=== PATIENT | female | born 1935 | race Caucasian/White ===

== ENCOUNTER 2017-10-27 07:37 | Inpatient (IN) | payer MEDICARE, OTHER ==
[~2017-10-27] VITALS: Ht 165.1 cm; Wt 74.8 kg
[2017-10-27] VITALS (7 sets, daily range): BP systolic 134–159; BP diastolic 60–70; PULSE 92–100; RESP 20–32; TEMP 99.2; Ht 165.1 cm; Wt 74.8 kg
[2017-10-27] MEDS ORDERED: IPRATROPIUM (NEB) 0.5 MG/2.5 ML AMP INH STA (08:00)
[2017-10-27] MEDS ORDERED: ALBUTEROL 0.5% (NEB) 2.5 MG/0.5 ML AMP INH STA (08:00)
[2017-10-27] MEDS ORDERED: METHYLPREDNISOLONE 125 MG INJ IV STA (08:00)
[2017-10-27] MEDS ORDERED: SOD CHLORIDE 0.9% 500 ML IV ONE (08:00)
--- NOTE | 2017-10-27 08:00 | ERD ---
ER Documentation Chief Complaint Chief Complaint AMS HPI This is an 82-year-old female with a past medical history of hypertension, hyperlipidemia, congestive heart failure, chronic kidney disease, COPD, GERD, anemia of chronic disease, Parkinson's disease, multiple sclerosis, schizophrenia, anxiety who is found to be more altered than usual this morning during morning evaluation. It is unclear exactly when her altered state started. She was evaluated this morning approximately 30 minutes prior to arrival. The patient is typically alert and oriented 1. However, this morning , she seemed more lethargic than usual. She apparently is on oxygen at baseline , but she seemed to be having increased work of breathing, so she was placed on a nonrebreather by the EMS crew. The patient does appropriately withdraw to pain, and she moves all extremities spontaneously. The patient apparently had a chest x-ray performed yesterday that revealed chronic interstitial lung changes without obvious pneumonia. There did not appear to be any acute cardiopulmonary process per the radiology report, read at 10:23 PM last night. The patient is nonverbal and unable to provide any history. History was obtained by review of the medical record from the nursing facility as well as from the EMS service. ROS Limited secondary to altered mentation Medications Home Meds Reported Medications Ascorbic Acid (Vitamin C) 500 Mg Tab, 500 MG PO BID, TAB 10/27/17 Tramadol Hcl* (Ultram*) 50 Mg Tablet, 50 MG PO Q8 Y for PAIN, TAB 10/27/17 Acetaminophen* (Acetaminophen*) 500 MG Extra Strength Tablet, 500 MG PO Q4H Y for PAIN AND OR ELEVATED TEMP, TAB 10/27/17 Pramipexole* (Pramipexole*) 0.25 Mg Tablet, 0.25 MG PO TID, TAB 10/27/17 Pimavanserin Tartrate (Nuplazid) 17 Mg Tablet, 17 MG PO DAILY, TAB 10/27/17 Potassium Chloride* (Potassium Chloride*) 20 Meq Tablet.er, 10 MEQ PO DAILY, TAB.SA 10/27/17 Omeprazole* (Omeprazole*) 20 Mg Capsule.dr, 20 MG PO DAILY, #30 CAP 10/27/17 Ibuprofen* (Advil*) 200 Mg Capsule, 200 MG PO BID Y for PAIN, CAP 10/27/17 Mirtazapine* (Mirtazapine*) 7.5 Mg Tablet, 7.5 MG PO HS, TAB 10/27/17 Magnesium Hydroxide* (Milk Of Magnesia*) 400 Mg/5 Ml Oral.susp, 30 ML PO DAILY Y for CONSTIPATION, ML 10/27/17 Metoprolol Succinate* (Toprol XL*) 25 Mg Tab.sr.24h, 25 MG PO DAILY, #30 TAB HOLD BELOW 110 OR HR BELOW 60 10/27/17 Mesalamine (Mesalamine) 800 Mg Tablet.dr, 800 MG PO BID 10/27/17 Melatonin (Melatonin) 3 Mg Tablet.sa, 3 MG PO HS, TAB.SA 10/27/17 Losartan Potassium* (Losartan Potassium*) 25 Mg Tablet, 25 MG PO DAILY, TAB 10/27/17 Levothyroxine Sodium* (Levothyroxine Sodium*) 88 Mcg Tablet, 88 MCG PO BEFORE BREAKFAST, #30 TAB 10/27/17 Furosemide* (Furosemide*) 20 Mg Tablet, 20 MG PO DAILY, #60 TAB 10/27/17 Clonazepam* (Klonopin*) 0.5 Mg Tab, 0.25 MG PO BID, TAB 10/27/17 Isosorbide Mononitrate* (Isosorbide Mononitrate*) 60 Mg Tab.er.24h, 60 MG PO DAILY, TAB 10/27/17 Mineral Oil* (Fleet* Mineral Oil Enema) 133 Ml Oil, 133 ML ND DAILY Y for CONSTIPATION, ENEMA 10/27/17 Ferrous Sulfate* (Ferrous Sulfate*) 325 Mg Tabec, 325 MG PO BID, TAB 10/27/17 Bisacodyl* (Dulcolax*) 5 Mg Tablet.dr, 10 MG PO DAILY Y for CONSTIPATION, TAB 10/27/17 Cranberry Extract (Cranberry) 425 Mg Capsule, 425 MG PO DAILY, CAP 10/27/17 Docusate Sodium* (Colace*) 100 Mg Capsule, 200 MG PO QHS, #30 CAP 10/27/17 Cholecalciferol* (Vitamin D3*) 1,000 Unit Tablet, 1000 UNIT PO DAILY, TAB 10/27/17 [Carbidopa-Levodopa] 25-250 TAB No Conflict Check, 25-250 MG PO TID for 31 Days 10/27/17 Ipratropium-Albuterol (Ipratropium-Albuterol) 0.5-3 Mg/3 Ml Ampul.neb, 3 ML INHALATION Q6, #30 VIAL 12/6/17 Atorvastatin* (Atorvastatin*) 40 Mg Tablet, 40 MG PO QHS, #30 TAB 10/27/17 Aspirin* (Aspirin* Chew) 81 Mg Tab.chew, 81 MG PO DAILY, TAB.CHEW 10/27/17 Amantadine Hcl* (Amantadine Hcl*) 100 Mg Tablet, 100 MG PO DAILY, #60 TAB 10/27/17 Allergies Allergies: Coded Allergies: No Known Allergy (Unverified , 10/27/17) PMhx/Soc Limited secondary to altered mentation Hx Neurological Disorder: Yes (PD, MS, Dementia) Hx Respiratory Disorders: Yes (COPD) Hx Cardiac Disorders: Yes (HTN, HLD, DM, CHF) Hx Psychiatric Problems: Yes (Anxiety, Depression) Hx Miscellaneous Medical Probl: No Hx Alcohol Use: No Hx Substance Use: No Hx Tobacco Use: No FmHx Limited secondary to altered mentation Physical Exam Vitals Vital Signs Date Time Temp Pulse Resp B/P Pulse Ox O2 Delivery O2 Flow Rate FiO2 10/27/17 14:45 87 24 93/37 96 BIPAP 10/27/17 14:10 102 92 30 10/27/17 13:30 92 96 75 10/27/17 11:56 101 24 118/31 98 BIPAP 10/27/17 11:00 97 88 75 10/27/17 09:30 95 30 10/27/17 09:30 95 95 40 10/27/17 08:47 118 28 145/100 98 BIPAP 10/27/17 08:12 99.2 10/27/17 07:48 Nasal Cannula 3 10/27/17 07:45 98.6 104 68 122/77 99 Physical Exam Const: Respiratory distress, well-developed, well-nourished Head: Normocephalic, Atraumatic Eyes: Normal Conjunctiva. Pupils equal, round and reactive to light ENT: Normal External Ears, Nose. Dry Mucous Membranes. Neck: No meningismus. Resp: Diffuse wheezes, Coarse breath sounds. Cardio: Regular rhythm. Sinus Tachycardia. No murmurs, rubs or gallops Abd: Obese, Soft, non tender, non distended. Normal bowel sounds Skin: No petechiae or rashes Back: No midline tenderness. No CVA tenderness. No ulcers Ext: No cyanosis, or edema Neur: Lethargic, oriented 0. No facial droop. Moves all extremities spontaneously and to pain. Result Diagram: 10/27/17 0745 10/27/17 0745 Results 24 hrs Laboratory Tests Test 10/27/17 07:45 10/27/17 08:00 10/27/17 08:10 10/27/17 10:51 White Blood Count 44.010^3/ul Red Blood Count 2.7510^6/ul Hemoglobin 8.5g/dl Hematocrit 28.9% Mean Corpuscular Volume 105.1fl Mean Corpuscular Hemoglobin 30.9pg Mean Corpuscular Hemoglobin Concent 29.4g/dl Red Cell Distribution Width 14.9% Platelet Count 4310^3/UL Mean Platelet Volume 9.8fl Neutrophils % % Segmented Neutrophils % (Manual) 3% Lymphocytes % % Lymphocytes % (Manual) 13% Reactive Lymphocytes % (Manual) 1% Monocytes % % Monocytes % (Manual) 3% Eosinophils % % Eosinophils % (Manual) 2% Basophils % % Metamyelocytes % (manual) 1% Myelocytes % (Manual) 3% Blast Cells % (Manual) 74.0% Nucleated Red Blood Cells % 1% Neutrophils # 10^3/ul Absolute Lymphocytes (Manual) 5.710^3/ul Lymphocytes # 10^3/ul Reactive Lymphocytes # 0.410^3/ul Monocytes # 10^3/ul Absolute Monocytes (Manual) 1.310^3/ul Eosinophils # 10^3/ul Basophils # 10^3/ul Metamyelocytes # 0.410^3/ul Myelocytes # 1.310^3/ul Nucleated Red Blood Cells # 10^3/ul Pathologist Review (Hematology) YES Platelet Estimate SIG DECREASED Polychromasia 3+ Poikilocytosis 1+ Anisocytosis 2+ Microcytosis 2+ Ovalocytes 1+ Prothrombin Time 13.9Sec Prothrombin Time Ratio 1.1 INR International Normalized Ratio 1.06 Activated Partial Thromboplast Time 36.6Sec Sodium Level 152mmol/L Potassium Level 4.9mmol/L Chloride Level 104mmol/L Carbon Dioxide Level 40mmol/L Anion Gap 13 Blood Urea Nitrogen 61mg/dl Creatinine 1.81mg/dl Glucose Level 114mg/dl Lactic Acid Level 1.0mmol/L 1.8mmol/L Calcium Level 9.8mg/dl Total Bilirubin 0.1mg/dl Direct Bilirubin 0.00mg/dl Indirect Bilirubin 0.1mg/dl Aspartate Amino Transf (AST/SGOT) 42IU/L Alanine Aminotransferase (ALT/SGPT) 16IU/L Alkaline Phosphatase 81IU/L Troponin I 0.328ng/ml Total Protein 8.2g/dl Albumin 3.9g/dl Globulin 4.30g/dl Albumin/Globulin Ratio 0.90 Blood Gas Specimen Source Blood arterial Arterial Blood Date Drawn 10/27/2017 8:20:09 AM Arterial Blood pH (Temp corrected) 7.217 Arterial Blood pCO2 (Temp correct) 91.5mmhg Arterial Blood pO2 (Temp corrected) 50.5mmHG Arterial Blood HCO3 36.4mmol/L Arterial Blood Base Excess 6.6mmol/L Arterial Blood Oxygen Saturation 84.6mmHG Yuval Test ACCEPTAB Arterial Blood Gas Puncture Site Right Radial Arterial Blood Carboxyhemoglobin 0.3% Arterial Blood Methemoglobin 0.5% Blood Gas A-a O2 Differential 78.0mmHg Oxyhemoglobin Percent 83.9% Total Hemoglobin 9.5g/dl Blood Gas Temperature 37.0C Blood Gas Modality NASAL CANNULA FiO2 33.0% Blood Gas Critical Value Read Back DR ROBERT Carey Blood Gas Notified Whom JLD Blood Gas Notified Time 10/27/2017 8:31:52 AM Urine Color YELLOW Urine Clarity CLOUDY Urine pH 5.0 Urine Specific [place] 1.015 Urine Ketones TRACEmg/dL Urine Nitrite NEGATIVEmg/dL Urine Bilirubin NEGATIVEmg/dL Urine Urobilinogen NEGATIVEmg/dL Urine Leukocyte Esterase NEGATIVELeu/ul Urine Microscopic RBC 2/HPF Urine Microscopic WBC 5/HPF Urine Amorphous Crystals MODERATE/HPF Urine Bacteria MODERATE/HPF Urine Hemoglobin NEGATIVEmg/dL Urine Glucose NEGATIVEmg/dL Urine Total Protein 1+mg/dl Test 10/27/17 12:06 10/27/17 13:18 Blood Gas Specimen Source Blood arterial Arterial Blood Date Drawn 10/27/2017 12:10:49 PM Arterial Blood pH (Temp corrected) 7.102 Arterial Blood pCO2 (Temp correct) 118.5mmhg Arterial Blood pO2 (Temp corrected) 133.1mmHG Arterial Blood HCO3 36.1mmol/L Arterial Blood Base Excess 4.2mmol/L Arterial Blood Oxygen Saturation 98.1mmHG Yuval Test ACCEPTAB Arterial Blood Gas Puncture Site Right Radial Arterial Blood Carboxyhemoglobin 0.3% Arterial Blood Methemoglobin 0.5% Blood Gas A-a O2 Differential 275.8mmHg Oxyhemoglobin Percent 97.3% Total Hemoglobin 9.8g/dl Blood Gas Temperature 37.0C Blood Gas Respiration Rate 14.0 Blood Gas Actual Respiration Rate 27 Blood Gas Modality MASK - BIPAP FiO2 75.0% Blood Gas IPAP/EPAP Ratio 15/5 Blood Gas Critical Value Read Back DR MARIA E Huang Blood Gas Notified Whom JLD Blood Gas Notified Time 10/27/2017 12:26:48 PM Lactic Acid Level 1.2mmol/L Current Medications Medications (Trade) Dose Ordered Sig/Kwasi Route PRN Reason Start Time Stop Time Status Last Admin Dose Admin Sodium Chloride (NS) 500 ml @ 500 mls/hr Q1H ONCE IV 10/27/17 08:00 10/27/17 08:59 DC 10/27/17 08:17 Ipratropium [place] (Atrovent 0.02% (Neb)) 1.5 mg ONCE STAT INH 10/27/17 08:00 10/27/17 08:03 DC 10/27/17 09:24 Albuterol (Proventil 0.5% (Neb)) 15 mg ONCE STAT INH 10/27/17 08:00 10/27/17 08:03 DC 10/27/17 09:24 Methylprednisolone Sodium Succinate 125 mg 125 mg ONCE STAT IV 10/27/17 08:00 10/27/17 08:03 DC 10/27/17 08:16 Vancomycin HCl 250 ml @ 125 mls/hr ONCE ONCE IVPB 10/27/17 09:30 10/27/17 11:29 DC 10/27/17 10:21 Cefepime HCl (Maxipime 2gm/50 ml (Pmx)) 50 ml @ 100 mls/hr ONCE STAT IVPB 10/27/17 09:24 10/27/17 09:53 DC 10/27/17 09:53 Aspirin (Aspirin) 300 mg ONCE ONCE ND 10/27/17 09:30 10/27/17 09:31 DC 10/27/17 09:52 Ondansetron HCl (Zofran Inj) 4 mg ER BRIDGE PRN IV NAUSEA AND/OR VOMITING 10/27/17 11:00 10/28/17 10:59 Acetaminophen 650 mg 650 mg ER BRIDGE PRN PO MILD PAIN/FEVER 10/27/17 11:00 10/28/17 10:59 Magnesium Sulfate (Magnesium Sulfate 2 Gm/50 ml) 50 ml @ 25 mls/hr ONCE ONCE IVPB 10/27/17 16:00 10/27/17 17:59 Procedures/[facility] MDM The patient's presentation warrants further investigation. I am concerned of a COPD exacerbation in this patient. There is a possibility of hypercarbic respiratory failure which we will further evaluate for. I do intend on getting an ABG in addition to initiating nebulized treatments and steroids. Later in her course, I also gave her magnesium to help with her respiratory status. Patient does have a mild elevation of her temperature and she is tachycardic, but her blood pressure is stable. She is technically not febrile, but she does need a workup for an infectious etiology as well as part of the altered mental status evaluation. CT of the head will be performed to evaluate for neurologic problem. A cardiac pathology will also be checked. LABS The patient's blood work was obtained and reviewed. The patient's CBC shows significant leukocytosis and left shift. I am concerned of a systemic infection. It is reassuring that her lactic acid is within normal limits. However, a WBC count of greater than 40 cannot be ignored. The patient has a macrocytic anemia that may be further evaluated in the hospital. I do not see any obvious source of bleeding, and I do not feel the patient requires a transfusion at this time. The patient's platelet count is quite low at 43. This will need to be closely monitored as well, but does not require emergent transfusion.. The patient's CMP shows no signs of metabolic or electrolyte emergencies. The patient has unremarkable renal and hepatic function testing. The patient's troponin is quite elevated at 0.328. The patient's EKG does not show any obvious signs of cardiac ischemia, but this needs to be serially evaluated. The patient will be given aspirin in the emergency department. EKG EKG read by me: Rate/Rhythm: Sinus tachycardia at 103 bpm with 1 PVC Intervals: Normal [place]: Normal Impression: A. fib with RVR, nonspecific repolarization changes but no evidence of acute ischemia. IMAGING CT head FINDINGS: There is normal hutchins-white matter differentiation. There is enlargement of the ventricles and subarachnoid spaces consistent with atrophy. There is decreased attenuation of the periventricular white matter consistent with microangiopathic ischemic change. There is no intracranial hemorrhage or space-occupying lesion. There are vascular calcifications consistent with atherosclerosis. There is no skull fracture or lytic lesion. There is fluid in the bilateral maxillary, sphenoid, ethmoid, and frontal sinuses. IMPRESSION: 1. Atrophy. 2. Microangiopathic ischemic change. 3. Atherosclerosis. 4. No intracranial hemorrhage. 5. Sinus disease. 6. Otherwise unremarkable noncontrast CT scan of the brain. Electronically viewed and signed by .Michele Doan MD, on 10/27/2017 09:13 CXR FINDINGS: Low lung volumes with cardiomegaly and hilar vascular congestion is present. There is left basilar atelectasis or consolidation with small left pleural effusion. There is mild right basilar atelectasis. Calcific atherosclerosis of the aorta is present. Osteoarthritis of the bilateral shoulder joints is present. Degenerative disk changes of the spine are present. IMPRESSION: Low lung volumes with cardiomegaly and mild hilar vascular congestion. Left basilar atelectasis or consolidation with small left pleural effusion. Electronically viewed and signed by .Julius Guillaume MD, MD on 10/27/2017 08:40 TREATMENT/DISPOSITION The patient is suffering through a COPD exacerbation with hypercarbic respiratory failure. The patient's power of home connect lpn, her son, had a conversation with the patient regarding intubation. The patient reportedly requested that she not be intubated, and at this time, the son would like to respect these wishes. The discussion of intubation and the risks for and against were had by both myself as well as the admitting physician with the patient's family. They had at one point decided to intubate the patient. At that time, she was upgraded to the ICU. Immediately prior to the procedure, however, the family change their mind. As long as the patient is not intubated , she will likely be okay for her telemetry. The patient remained mostly unresponsive in the emergency department she had transient episodes of tachycardia, which I believe to be related to the albuterol nebulized therapies. But she did continue to breathe on her own with good oxygenation levels. The patient was placed on BiPAP shortly after the initial ABG showed a respiratory acidosis secondary to hypercarbia. However, the second ABG showed a worsening hypercarbia. The patient was repositioned and the BiPAP settings were adjusted. The patient will have a subsequent ABG that may be evaluated by the admitting team. The patient's EKG does not reveal obvious signs of acute ischemia, the patient' s troponin is concerning. The patient's creatinine is elevated, but I do not have the baseline to compare to as she has not been to this hospital previously. The patient will receive aspirin in the emergency department. A cardiology consult may be considered. The decision will be deferred to the admitting team. With respect to her infection, I am concerned about sepsis. Patient's infectious symptoms have not stabilized and the patient is at risk of rapid decompensation. The patient will be admitted for careful hydration, antibiotic therapy, and infectious source control. The differential must also include leukemia/lymphoma given the significant leukocytosis with elevated blast cell percentage. C. difficile was also considered, but the patient has not had any diarrhea. Severe Sepsis criteria: Infectious source: Unclear End organ damage indicated by: Acute Resp Failure (sat < 92% w/o oxygen) Plt < 100 Sepsis Management: Time of recognition of sepsis: 08:00 Within 3 hours of recognition: Blood cultures x 2 before broad-spectrum antibiotics: Yes 30 ml/kg NS bolus: Completed Initial lactate: 1.0 Repeat lactate: 1.8 Time of recognition of septic shock: No septic shock Accepting Care Team Current data and ongoing care discussed. Admitting Physician: Maria E Outstanding Data: Culture results Critical Care: Critical care time: Greater than 35 minutes excluding all billable procedures Emergent fluid management while maintaining close respiratory support. Provision of immediate and broad-spectrum antibiotic therapy. Simultaneous assessment for possible sources in order to direct targeted therapy. Consideration for invasive and chemical support to prevent cardiopulmonary collapse. Disclaimer: Inadvertent spelling and grammatical errors are likely due to EHR/ dictation software use and do not reflect on the overall quality of patient care. Note that the electronic time recorded on this note does not necessarily reflect the actual time of the patient encounter. Departure Diagnosis: Primary Impression: Acute respiratory failure with hypoxia and hypercarbia Additional Impressions: COPD exacerbation Leukocytosis Leukocytosis type: unspecified Qualified Code: D72.829 - Leukocytosis, unspecified type Thrombocytopenia Macrocytic anemia Sepsis Sepsis type: sepsis due to unspecified organism Qualified Code: A41.9 - Sepsis, due to unspecified organism MONICO (acute kidney injury) Condition: Critical KAYLA JONES MD Oct 27, 2017 07:56
[2017-10-27 08:24] LABS: ABNORMAL IP MESSAGE 1; HEMATOCRIT 28.9 % (37.0-47.0); HEMOGLOBIN 8.5 g/dl (12.0-16.0); MEAN CORPUSCULAR HEMOGLOBIN 30.9 pg (29.0-33.0); MEAN CORPUSCULAR HGB CONC 29.4 g/dl (32.0-37.0); MEAN CORPUSCULAR VOLUME 105.1 fl (82.0-101.0); MEAN PLATELET VOLUME 9.8 fl (7.4-10.4); PLATELET COUNT 43 10^3/UL (140-415); RED BLOOD COUNT 2.75 10^6/ul (4.20-5.40); RED CELL DISTRIBUTION WIDTH 14.9 % (11.5-14.5)
[2017-10-27 08:32] LABS: Allen Test ACCEPTAB; Arterial Base Excess 6.6 mmol/L (-3.0-3); Arterial COHb 0.3 % (0.0-3.0); Arterial Fraction of Oxyhgb 83.9 % (93.0-99.0); Arterial HCO3 36.4 mmol/L (22.0-26.0); Arterial MetHb 0.5 % (0.0-1.5); Arterial Total Hemglobin 9.5 g/dl (12.0-18.0); MODE NASAL CANNULA
[2017-10-27] MEDS ORDERED: ASPI81TA3 PO (08:32)
[2017-10-27] MEDS ORDERED: AMAN100T PO (08:32)
[2017-10-27] MEDS ORDERED: ATOR40TA68 PO (08:32)
[2017-10-27] MEDS ORDERED: IPRA3AMP INHALATION (08:33)
[2017-10-27 08:34] LABS: ALBUMIN 3.9 g/dl (3.3-4.9); ALBUMIN/GLOBULIN RATIO 0.9; BILIRUBIN,INDIRECT 0.1 mg/dl (0-1.1); BILIRUBIN,TOTAL 0.1 mg/dl (0.2-1.3); CALCIUM 9.8 mg/dl (8.4-10.2); CREATININE 1.81 mg/dl (0.44-1.00); POTASSIUM 4.9 mmol/L (3.5-5.1); TOTAL PROTEIN 8.2 g/dl (6.1-8.1)
[2017-10-27] MEDS ORDERED: CARBIDOPA-LEVODOPA PO (08:34)
[2017-10-27] MEDS ORDERED: DOCU-144 PO (08:35)
[2017-10-27] MEDS ORDERED: CRAN425C2 PO (08:35)
[2017-10-27] MEDS ORDERED: CHOL100062 PO (08:35)
[2017-10-27] MEDS ORDERED: ISOS60TA PO (08:36)
[2017-10-27] MEDS ORDERED: MINE133E23 PR (08:36)
[2017-10-27] MEDS ORDERED: BISA-57 PO (08:36)
[2017-10-27] MEDS ORDERED: FER325 PO (08:36)
[2017-10-27] MEDS ORDERED: CLON-429 PO (08:37)
[2017-10-27] MEDS ORDERED: FURO20TA3 PO (08:37)
[2017-10-27] MEDS ORDERED: LEVO88TA3 PO (08:38)
[2017-10-27] MEDS ORDERED: LOSA25TA5 PO (08:38)
[2017-10-27 08:40] LABS: POSITIVE DIFF @See below
[2017-10-27] MEDS ORDERED: MELA3TAB17 PO (08:40)
--- NOTE | 2017-10-27 08:40 | RADRPT ---
PROCEDURE: XR Chest. CLINICAL INDICATION: Sepsis . TECHNIQUE: Single frontal chest x-ray. COMPARISON: None. FINDINGS: Low lung volumes with cardiomegaly and hilar vascular congestion is present. There is left basilar a telectasis or consolidation with small left pleural effusion. There is mild right basilar atelectasi s. .. Calcific atherosclerosis of the aorta is present.. Osteoarthritis of the bilateral shoulder joints is present. Degenerative disk changes of the spine are present. . IMPRESSION: Low lung volumes with cardiomegaly and mild hilar vascular congestion. Left basilar atelectasis or consolidation with small left pleural effusion.. RPTAT: GG .Julius Guillaume MD, MD Date Time Electronically viewed and signed by .Julius Guillaume MD, MD on 10/27/2017 08:40 .L/
[2017-10-27] MEDS ORDERED: MESA800T PO (08:41)
[2017-10-27] MEDS ORDERED: METO-335 PO (08:42)
[2017-10-27] MEDS ORDERED: MIRT7.5T8 PO (08:42)
[2017-10-27] MEDS ORDERED: MAGN400O4 PO (08:42)
[2017-10-27] MEDS ORDERED: IBUP200C11 PO (08:42)
[2017-10-27] MEDS ORDERED: OMEP20CA16 PO (08:43)
[2017-10-27] MEDS ORDERED: POTA20TA96 PO (08:43)
[2017-10-27] MEDS ORDERED: PRAM0.25 PO (08:44)
[2017-10-27] MEDS ORDERED: ACET-141 PO (08:44)
[2017-10-27] MEDS ORDERED: PIMA17TA PO (08:44)
[2017-10-27] MEDS ORDERED: TRAM-40 PO (08:45)
[2017-10-27] MEDS ORDERED: ASC500 PO (08:45)
[2017-10-27 08:47] LABS: INR 1.06; PROTIME 13.9 Sec (11.9-14.9); PT RATIO 1.1
[2017-10-27 08:48] LABS: PARTIAL THROMBOPLASTIN TIME 36.6 Sec (25.0-35.0)
[2017-10-27 09:02] LABS: TROPONIN-I 0.328 ng/ml (0.00-0.12)
--- NOTE | 2017-10-27 09:13 | RADRPT ---
PROCEDURE: CT Brain without contrast. CLINICAL INDICATION: Altered mental status. TECHNIQUE: A CT of the brain without contrast was performed utilizing axial sections from the skul l base through the vertex. The patient was scanned without intravenous contrast enhancement. [place] l and coronal reformatted images were obtained using the data from the axial images. Total exam DLP is 844.08 mGy-cm. CTDIvol is 43.19 mGy. One or more of the following dose reduction techniques were used: Automated exposure control, adjustment of the mA and/or kV according to patient size, use of iterative reconstruction technique. DICOM images are available. COMPARISON: None available. FINDINGS: There is normal hutchins-white matter differentiation. There is enlargement of the ventricles and subarachnoid spaces consistent with atrophy. There is decreased attenuation of the periventricular white matter consistent with microangiopathic ischemic change. There is no intracranial hemorrhage or space-occupying lesion. There are vascular calcifications consistent with atherosclerosis. There is no skull fracture or lytic lesion. There is fluid in the bilateral maxillary, sphenoid, eth moid, and frontal sinuses. IMPRESSION: 1. Atrophy. 2. Microangiopathic ischemic change. 3. Atherosclerosis. 4. No intracranial hemorrhage. 5. Sinus disease. 6. Otherwise unremarkable noncontrast CT scan of the brain. RPTAT: QQ .Michele Doan MD, MD Date Time Electronically viewed and signed by .Michele Doan MD, MD on 10/27/2017 09:13 .R/
[2017-10-27] MEDS ORDERED: CEFEPIME 2GM/50 ML (PMX) 50 ML IVPB STA (09:24)
[2017-10-27] MEDS ORDERED: ASPIRIN 300 MG SUPP PR ONE (09:30)
[2017-10-27] MEDS ORDERED: VANCOMYCIN 1 GM (PMX) 250 ML IVPB ONE (09:30)
[2017-10-27 09:39] LABS: ADD UMIC YES; UR AMORPHOUS CRYSTAL MODERATE /HPF (NONE SEEN); UR ASCORBIC ACID 40 mg/dL (NEGATIVE); UR BACTERIA MODERATE /HPF (NONE SEEN); UR BILIRUBIN (Dip) NEGATIVE (NEGATIVE); UR BLOOD (Dip) NEGATIVE (NEGATIVE); UR CLARITY CLOUDY (CLEAR); UR COLOR YELLOW (YELLOW); UR GLUCOSE (Dip) NEGATIVE (NEGATIVE); UR KETONES (Dip) TRACE mg/dL (NEGATIVE); UR LEUKOCYTE ESTERASE (Dip) NEGATIVE Leu/ul (NEGATIVE); UR NITRITE (Dip) NEGATIVE (NEGATIVE); UR RBC 2 /HPF (0-5); UR SPECIFIC GRAVITY (Dip) 1.015 (1.003-1.030); UR TOTAL PROTEIN (Dip) 1+ mg/dl (NEGATIVE); UR UROBILINOGEN (Dip) NEGATIVE (NEGATIVE)
[2017-10-27 10:35] LABS: ANISOCYTOSIS 2+ (0-0); EOSINOPHILS % (M) 2 % (0-7); ERYTHROBLAST% (NRBC) (M) 1 % (0-0); METAMYELOCYTES %M 1 % (0-0); MICROCYTOSIS 2+ (0-0); MONOCYTES % (M) 3 % (0-11); MYELOCYTES % (M) 3 % (0-0); OVALOCYTES 1+ (0-0); PLATELET ESTIMATE SIG DECREASED; POIKILOCYTOSIS 1+ (0-0); POLYCHROMASIA 3+ (0-0); REACTIVE LYMPHOCYTES% (M) 1 % (0-0)
[2017-10-27 10:36] LABS: PATH REVIEW? YES
[2017-10-27] MEDS ORDERED: ONDANSETRON 4 MG INJ IV PRN (11:00)
[2017-10-27] MEDS ORDERED: ACETAMINOPHEN 325 MG TAB PO PRN (11:00)
--- NOTE | 2017-10-27 12:11 | CONS ---
Date/Time of Note Date/Time of Note DATE: 10/27/17 TIME: 12:11 Consultation Date/Type/Reason Admit Date/Time Date of Consultation: Oct 27, 2017 Type of Consultation: pulm/cc Hx of Present Illness pulm/cc consult dictated [id number] Social History Smoking Status: Never smoker Exam/Review of Systems Vital Signs Vitals Vital Signs Date Time Temp Pulse Resp B/P Pulse Ox O2 Delivery O2 Flow Rate FiO2 10/27/17 11:56 101 24 118/31 98 BIPAP 10/27/17 09:30 40 10/27/17 08:12 99.2 10/27/17 07:48 3 Results Result Diagram: 10/27/17 0745 10/27/17 0745 Results 24 hrs Laboratory Tests Test 10/27/17 07:45 10/27/17 08:00 10/27/17 08:10 10/27/17 10:51 White Blood Count 44.0 H Red Blood Count 2.75 L Hemoglobin 8.5 L Hematocrit 28.9 L Mean Corpuscular Volume 105.1 H Mean Corpuscular Hemoglobin 30.9 Mean Corpuscular Hemoglobin Concent 29.4 L Red Cell Distribution Width 14.9 H Platelet Count 43 L Mean Platelet Volume 9.8 Neutrophils % Segmented Neutrophils % (Manual) 3 L Lymphocytes % Lymphocytes % (Manual) 13 L Reactive Lymphocytes % (Manual) 1 H Monocytes % Monocytes % (Manual) 3 Eosinophils % Eosinophils % (Manual) 2 Basophils % Metamyelocytes % (manual) 1 H Myelocytes % (Manual) 3 H Blast Cells % (Manual) 74.0 H Nucleated Red Blood Cells % 1 H Neutrophils # Absolute Lymphocytes (Manual) 5.7 H Lymphocytes # Reactive Lymphocytes # 0.4 H Monocytes # Absolute Monocytes (Manual) 1.3 H Eosinophils # Basophils # Metamyelocytes # 0.4 H Myelocytes # 1.3 H Nucleated Red Blood Cells # Pathologist Review (Hematology) YES Platelet Estimate SIG DECREASED Polychromasia 3+ Poikilocytosis 1+ Anisocytosis 2+ Microcytosis 2+ Ovalocytes 1+ Prothrombin Time 13.9 Prothrombin Time Ratio 1.1 INR International Normalized Ratio 1.06 Activated Partial Thromboplast Time 36.6 H Sodium Level 152 H Potassium Level 4.9 Chloride Level 104 Carbon Dioxide Level 40 H Anion Gap 13 Blood Urea Nitrogen 61 H Creatinine 1.81 H Glucose Level 114 Lactic Acid Level 1.0 1.8 Calcium Level 9.8 Total Bilirubin 0.1 L Direct Bilirubin 0.00 Indirect Bilirubin 0.1 Aspartate Amino Transf (AST/SGOT) 42 Alanine Aminotransferase (ALT/SGPT) 16 Alkaline Phosphatase 81 Troponin I 0.328 *H Total Protein 8.2 H Albumin 3.9 Globulin 4.30 H Albumin/Globulin Ratio 0.90 Blood Gas Specimen Source Blood arterial Arterial Blood Date Drawn 10/27/2017 8:20:09 AM Arterial Blood pH (Temp corrected) 7.217 *L Arterial Blood pCO2 (Temp correct) 91.5 *H Arterial Blood pO2 (Temp corrected) 50.5 *L Arterial Blood HCO3 36.4 H Arterial Blood Base Excess 6.6 H Arterial Blood Oxygen Saturation 84.6 L Yuval Test ACCEPTAB Arterial Blood Gas Puncture Site Right Radial Arterial Blood Carboxyhemoglobin 0.3 Arterial Blood Methemoglobin 0.5 Blood Gas A-a O2 Differential 78.0 H Oxyhemoglobin Percent 83.9 L Total Hemoglobin 9.5 L Blood Gas Temperature 37.0 Blood Gas Modality NASAL CANNULA FiO2 33.0 Blood Gas Critical Value Read Back DR ROBERT Carey Blood Gas Notified Whom JLD Blood Gas Notified Time 10/27/2017 8:31:52 AM Urine Color YELLOW Urine Clarity CLOUDY A Urine pH 5.0 Urine Specific [place] 1.015 Urine Ketones TRACE A Urine Nitrite NEGATIVE Urine Bilirubin NEGATIVE Urine Urobilinogen NEGATIVE Urine Leukocyte Esterase NEGATIVE Urine Microscopic RBC 2 Urine Microscopic WBC 5 Urine Amorphous Crystals MODERATE Urine Bacteria MODERATE Urine Hemoglobin NEGATIVE Urine Glucose NEGATIVE Urine Total Protein 1+ H CINTIA SMIHT Oct 27, 2017 12:11
[2017-10-27 12:27] LABS: AADO2 Arterial 275.8 mmHg (7.0-24.0); Allen Test ACCEPTAB; Arterial Base Excess 4.2 mmol/L (-3.0-3); Arterial COHb 0.3 % (0.0-3.0); Arterial Fraction of Oxyhgb 97.3 % (93.0-99.0); Arterial HCO3 36.1 mmol/L (22.0-26.0); Arterial MetHb 0.5 % (0.0-1.5); Arterial Total Hemglobin 9.8 g/dl (12.0-18.0); Blood Gas IEPAP 15/5; MODE MASK - BIPAP
--- NOTE | 2017-10-27 12:41 | CONS ---
DATE OF ADMISSION: 10/27/2017 DATE OF CONSULTATION: 10/27/2017 TYPE OF CONSULTATION: Pulmonary critical care consultation. REFERRING PHYSICIAN: ER physician. REASON FOR REFERRAL: Evaluation of respiratory failure. HISTORY OF PRESENT ILLNESS: Ms. Rod is an 82-year-old female who [facility] , who was sent over to the hospital after being found to be more obtunded mentally. Upon evaluation , her ABG was done which is showing severe hypoxemic and hypercapnic respiratory failure. The patie nt has been put on BiPAP, but the patient is still not responding. History was obtained from medica l records. PAST MEDICAL HISTORY: 1. Hypertension. 2. Hyperlipidemia. 3. CHF. 4. CKD. 5. COPD. 6. Acid reflux. 7. Anemia. 8. Multiple sclerosis. 9. Schizophrenia. 10. Parkinson disease. CURRENT MEDICATIONS: The patient is on: 1. Intravenous Zosyn. 2. Intravenous cefepime. 3. Intravenous vancomycin. 4. Normal saline 500 and medication was given x1. 5. Aspirin 300 mg also was given x1. 6. Solu-Medrol was also given 125 mg x1, IV push. ALLERGIES: NONE. SOCIAL HISTORY: Not available. FAMILY HISTORY: Not available. OCCUPATIONAL HISTORY: Not available. REVIEW OF SYSTEMS: Unable to be obtained. PHYSICAL EXAMINATION: GENERAL: Elderly woman on BiPAP, unresponsive. VITAL SIGNS: Temperature is 99 degrees Fahrenheit, pulse is 101 per minute, blood pressure is 118/6 0, O2 saturation is 98%. Patient is currently on BiPAP, 15/5 at 75% FIO2, backup rate of 14, respir atory rate is 20 per minute. NECK: Supple neck, no JVD, no lymphadenopathy, midline trachea, no thyromegaly. No neck masses. SKIN: Patient has multiple carious teeth. LUNGS: Reveals breath sounds bilaterally. HEART: S1, S2 audible. No murmurs. ABDOMEN: Soft. Bowel sounds are sluggish. No organomegaly. EXTREMITIES: No edema. Pulses 1+ bilaterally. NEUROLOGIC: Patient remains unresponsive. IMAGING: Chest x-ray was reviewed from today, which is essentially unremarkable. CT brain also was reviewed which is showing a atrophy without any acute findings. LABORATORY DATA: Urinalysis positive for UTI. Sodium 152, potassium 4.9, chloride 104, bicarbonate 40, BUN 61, creatinine 1.8. AST of 42, AST of 16. ABG done on 4 liter nasal cannula, pH 7.21, pCO 2 of 91, pO2 of 50, O2 saturation is 84.6%. White count is 44,000, hemoglobin 8.5, platelet count o f 43,000. ASSESSMENT AND PLAN: 1. Patient admitted with severe sepsis. Source is unclear, possibly urinary tract infection. 2. Chronic renal insufficiency. 3. Apparently dementia. 4. Multiple other comorbidities including Parkinson disease, chronic renal insufficiency, chronic o bstructive pulmonary disease, acid reflux, anemia, hyperlipidemia, hypertension, schizophrenia, mult iple sclerosis. 5. Severe hypercapnia and hypoxemia. 6. Hypernatremia. 7. Encephalopathy, possibly acute on chronic. RECOMMENDATIONS: We will obtain a stat ABG. If there is no improvement in pCO2, patient may need t o be intubated. Meanwhile, continue broad-spectrum antibiotic coverage. Continue IV hydration. Be cause of severe thrombocytopenia I would hold off any anticoagulation. Code status needs to be addressed with the family, if available. Dictated By: CINTIA CROSS/WILL Conf#: [id number] DID#: [id number]
[2017-10-27] MEDS ORDERED: MAGNESIUM SULFATE 2 GM/50 ML 50 ML IVPB ONE (16:00)
[2017-10-27 16:18] LABS: AADO2 Arterial 90.2 mmHg (7.0-24.0); Allen Test ACCEPTAB; Arterial Base Excess 3.6 mmol/L (-3.0-3); Arterial COHb 0.3 % (0.0-3.0); Arterial HCO3 32.4 mmol/L (22.0-26.0); Arterial MetHb 0.3 % (0.0-1.5); Arterial Total Hemglobin 9.2 g/dl (12.0-18.0); Blood Gas IEPAP 22/5; Blood Gas PS 18; MODE MASK - BIPAP
[2017-10-27 17:13] LABS: PATH REVIEW CH
[2017-10-27] MEDS ORDERED: morphine 4 MG/ML VIAL IV PRN (22:30)
[2017-10-27] MEDS ORDERED: LORAZEPAM 2 MG INJ IV PRN (22:30)
[2017-10-27] MEDS ORDERED: morphine (DRIP) 100 MG/100 ML 100 ML IV SCH (23:00)
[2017-10-28] VITALS (9 sets, daily range): BP systolic 89–146; BP diastolic 41–65; PULSE 0–111; RESP 11–26
--- NOTE | 2017-10-28 07:48 | HP ---
Date/Time of Note Date/Time of Note DATE: 10/28/17 TIME: 07:34 Assessment/Plan VTE Prophylaxis VTE Prophylaxis Intervention: other (No need for DVT prophylaxis because patient is comfort measures only) Lines/Catheters IV Catheter Type (from Nrs): Peripheral IV Urinary Cath still in place: Yes Reason Cath still needed: terminal illness/intractable pain Assessment/Plan Assessment/Plan ASSESSMENT 82-year-old female with a history of dementia, hypertension, COPD, diabetes, schizophrenia who was sent from [facility] for hypoxia and worsening mentation found to be septic secondary to pneumonia. Patient also with several laboratory abnormalities. Patient was initially placed on BiPAP and had received IV antibiotics, breathing treatments and IV corticosteroid. Once admitted however, family requested that patient be made comfort measures only based on her previous wishes. PLAN Continue comfort measures only Patient is currently on morphine drip. Will add Ativan as needed Palliative care consult Hospice evaluation. Family expressed inpatient hospice HPI/ROS Admit Date/Time Admit Date/Time Hx of Present Illness This is an 82-year-old female with a history of dementia, hypertension, COPD, diabetes, schizophrenia who was sent from [facility] for hypoxia and worsening mentation. When she was in the ER, patient was placed on BiPAP. Chest x-ray shows low lung volumes with cardiomegaly and mild hilar vascular congestion and left basilar atelectasis or consolidation with small left pleural effusion. There were several laboratory abnormalities including a WBC of 44,000, creatinine 1.6, BUN 61, sodium 152, troponin 0 0.328 , hemoglobin 8.5 and platelet count of 43. Once patient was admitted to the floor, the family stated that she does not need to be on a BiPAP and that they want her to be comfort measure only. There were several family members, but I spoke mainly was patient's son who was at the bedside. They stated that the patient has been at facility for over a year and previously she expressed no heroic measures. Currently she is on morphine drip and oxygen per family's request. PMH/Family/Social Social History Smoking Status: Never smoker Exam/Review of Systems Vital Signs Vitals Vital Signs Date Time Temp Pulse Resp B/P Pulse Ox O2 Delivery O2 Flow Rate FiO2 10/28/17 04:40 15.0 10/28/17 04:38 76 35 10/28/17 04:31 98.9 88 26 144/63 10/28/17 04:00 Non Rebreather Intake and Output 10/27/17 10/27/17 10/28/17 15:00 23:00 07:00 Intake Total 0 ml Output Total 1450 ml Balance -1450 ml Exam Constitutional: other (Eyes closed, agonal breathing and noted. No distress) Head: atraumatic, normocephalic Eyes: PERRL Respiratory: diminished breath sounds Cardiovascular: other (Tachycardic with regular rhythm) Gastrointestinal: soft Labs Result Diagram: 10/27/1774410/27/17744 Medications Medications Current Medications Lorazepam 1 mg 1 mg Q3 PRN IV AGITATION/ANXIETY; Start 10/27/17 at 22:30 Morphine Sulfate/ Sodium Chloride (morphine) 100 ml @ 1 mls/hr TITRATE IV Last administered on 10/28/17 00:05; Admin Dose 3 MLS/HR; Start 10/27/17 at 23:00 THEO ÁLVAREZ MD Oct 28, 2017 07:47
[2017-10-28] MEDS ORDERED: ATROPINE 1% 5 ML OPH SL PRN (16:00)
[2017-10-28] MEDS ORDERED: SCOPOLAMINE 1.5 MG PATCH TRANSDERM SCH (16:00)
[2017-10-28] MEDS ORDERED: ALBUTEROL/IPRATROPIUM (NEB) 3 ML AMP HHN PRN (16:00)
[2017-10-28] MEDS ORDERED: ONDANSETRON 4 MG INJ IV PRN (16:00)
[2017-10-28] MEDS ORDERED: ACETAMINOPHEN 650 MG SUPP PR PRN (16:00)
--- NOTE | 2017-10-28 17:54 | DS ---
Date/Time of Note Date/Time of Note DATE: 10/28/17 TIME: 17:51 Discharge Summary Admission/Discharge Info Admit Date/Time Oct 27, 2017 at 10:57 Discharge Date/Time October 28, 2017 Discharge Diagnosis 1. End-stage Parkinson's dementia DC to inpatient hospice 2. Sepsis secondary to pneumonia Comfort measures 3. History of COPD 4. History of schizophrenia 5. History of hypertension Patient Condition: Critical Hospital Course Patient is a 82-year-old female with a history of dementia, hypertension, COPD, diabetes, schizophrenia who was sent from [facility] rehab facility for hypoxia and worsening mentation found to be septic secondary to pneumonia. Patient also with several laboratory abnormalities. Patient was initially placed on BiPAP and had received IV antibiotics, breathing treatments and IV corticosteroid. Once admitted however, family requested that patient be made comfort measures only based on her previous wishes. Patient was seen by hospice and was felt to be appropriate for inpatient hospice. Patient was started on a morphine drip, scopolamine patch as well as Ativan as needed and transferred to hospice care. Home Meds Discontinued Reported Medications Ascorbic Acid (Vitamin C) 500 Mg Tab, 500 MG PO BID, TAB 10/27/17 Tramadol Hcl* (Ultram*) 50 Mg Tablet, 50 MG PO Q8 Y for PAIN, TAB 10/27/17 Acetaminophen* (Acetaminophen*) 500 MG Extra Strength Tablet, 500 MG PO Q4H Y for PAIN AND OR ELEVATED TEMP, TAB 10/27/17 Pramipexole* (Pramipexole*) 0.25 Mg Tablet, 0.25 MG PO TID, TAB 10/27/17 Pimavanserin Tartrate (Nuplazid) 17 Mg Tablet, 17 MG PO DAILY, TAB 10/27/17 Potassium Chloride* (Potassium Chloride*) 20 Meq Tablet.er, 10 MEQ PO DAILY, TAB.SA 10/27/17 Omeprazole* (Omeprazole*) 20 Mg Capsule.dr, 20 MG PO DAILY, #30 CAP 10/27/17 Ibuprofen* (Advil*) 200 Mg Capsule, 200 MG PO BID Y for PAIN, CAP 10/27/17 Mirtazapine* (Mirtazapine*) 7.5 Mg Tablet, 7.5 MG PO HS, TAB 10/27/17 Magnesium Hydroxide* (Milk Of Magnesia*) 400 Mg/5 Ml Oral.susp, 30 ML PO DAILY Y for CONSTIPATION, ML 10/27/17 Metoprolol Succinate* (Toprol XL*) 25 Mg Tab.sr.24h, 25 MG PO DAILY, #30 TAB HOLD BELOW 110 OR HR BELOW 60 10/27/17 Mesalamine (Mesalamine) 800 Mg Tablet.dr, 800 MG PO BID 10/27/17 Melatonin (Melatonin) 3 Mg Tablet.sa, 3 MG PO HS, TAB.SA 10/27/17 Losartan Potassium* (Losartan Potassium*) 25 Mg Tablet, 25 MG PO DAILY, TAB 10/27/17 Levothyroxine Sodium* (Levothyroxine Sodium*) 88 Mcg Tablet, 88 MCG PO BEFORE BREAKFAST, #30 TAB 10/27/17 Furosemide* (Furosemide*) 20 Mg Tablet, 20 MG PO DAILY, #60 TAB 10/27/17 Clonazepam* (Klonopin*) 0.5 Mg Tab, 0.25 MG PO BID, TAB 10/27/17 Isosorbide Mononitrate* (Isosorbide Mononitrate*) 60 Mg Tab.er.24h, 60 MG PO DAILY, TAB 10/27/17 Mineral Oil* (Fleet* Mineral Oil Enema) 133 Ml Oil, 133 ML TN DAILY Y for CONSTIPATION, ENEMA 10/27/17 Ferrous Sulfate* (Ferrous Sulfate*) 325 Mg Tabec, 325 MG PO BID, TAB 10/27/17 Bisacodyl* (Dulcolax*) 5 Mg Tablet.dr, 10 MG PO DAILY Y for CONSTIPATION, TAB 10/27/17 Cranberry Extract (Cranberry) 425 Mg Capsule, 425 MG PO DAILY, CAP 10/27/17 Docusate Sodium* (Colace*) 100 Mg Capsule, 200 MG PO QHS, #30 CAP 10/27/17 Cholecalciferol* (Vitamin D3*) 1,000 Unit Tablet, 1000 UNIT PO DAILY, TAB 10/27/17 [Carbidopa-Levodopa] 25-250 TAB No Conflict Check, 25-250 MG PO TID for 31 Days 10/27/17 Ipratropium-Albuterol (Ipratropium-Albuterol) 0.5-3 Mg/3 Ml Ampul.neb, 3 ML INHALATION Q6, #30 VIAL 10/27/17 Atorvastatin* (Atorvastatin*) 40 Mg Tablet, 40 MG PO QHS, #30 TAB 10/27/17 Aspirin* (Aspirin* Chew) 81 Mg Tab.chew, 81 MG PO DAILY, TAB.CHEW 10/27/17 Amantadine Hcl* (Amantadine Hcl*) 100 Mg Tablet, 100 MG PO DAILY, #60 TAB 10/27/17 Primary Care Provider Liza Anand MD Time spent on discharge: > 30 minutes CHERELLE GUZMAN Oct 28, 2017 17:54
--- NOTE | 2017-10-28 18:50 | CONS ---
DATE OF ADMISSION: 10/27/2017 DATE OF CONSULTATION: 10/28/2017 PALLIATIVE CARE CONSULTATION CHIEF COMPLAINT AND HISTORY OF PRESENT ILLNESS: The patient is an 82-year-old female with a history of Alzheimer's dementia who had [facility] . The patient at baseline has significant cognitive impairment which had been progressively getting worse. The patient, for the last 2 weeks, had been eating less and was declining. The patient was back to wheelchair bound. The patient was brought into the hospital due to increasing altered ment al status. The patient does have a history of hypertension, dyslipidemia, congestive heart failure, chronic kidney disease, COPD, anemia, parkinsonism, multiple sclerosis and schizophrenia. The [facility] ent was seen in the ER and was found to have WBC count of 44,000. Sodium was 152, potassium was 4.9 , BUN was , creatinine 1.8. The patient had clinical evidence of dehydration. The patient has diffuse wheezing and coarse breath sounds. The patient was diagnosed with severe sepsis. The [facility] ent's chest x-ray revealed left basilar atelectasis versus consolidation. The patient does have coa rse breath sounds. The patient was seen by Dr. Sanderson from pulmonary standpoint, and ABG revealed pH of 7.2, pCO2 of 91, pO2 of 50. The patient's family did not want her to be intubated and requested comfort care only. The patient has been started on morphine drip. The patient currently has coars e breath sounds and difficulty managing her secretions. The patient also had a fever of 103.1 a few hours ago. No reported seizure. No reported bleeding from any site. The patient does not have an y leg edema. The patient was started on morphine drip and now has been titrated up to 5 mg an hour. REVIEW OF SYSTEMS: Could not be obtained as the patient is nonverbal. PAST MEDICAL HISTORY: As stated above. SOCIAL HISTORY: No smoking. FAMILY HISTORY: Noncontributory. ALLERGIES: NONE. PAST SURGICAL HISTORY: Unknown. PHYSICAL EXAMINATION: GENERAL: The patient is lethargic. VITAL SIGNS: T-max 103.1, pulse 103, respirations 14, blood pressure 89/41, O2 sat 91% on nonrebrea ther mask. HEENT: No eye discharge or redness. Oropharynx examination was deferred due to nonrebreather mask. NECK: No mass. CHEST: Coarse breath sounds anteriorly. CARDIOVASCULAR: S1, S2 normal. No murmur. ABDOMEN: Soft, nondistended, nontender. EXTREMITIES: No leg edema. NEUROLOGIC: The patient is nonverbal. RECENT LABORATORY: ABG: PH 7.2, pCO2 of 78.5, pO2 68. Sodium 152, potassium 4.9, BUN , creat inine 1.8. Troponin positive. WBC 44, hemoglobin 8.5, platelets 43. Blood culture and urine cultu re both were positive for growth, final identification pending. The patient is growing gram-positiv e cocci 1 out of 2. Urine culture is growing more than 100,000 gram-negative rods. IMPRESSION: 1. Acute hypoxemic, hypercarbic respiratory failure. 2. Sepsis, possibly due to healthcare-acquired pneumonia. 3. Urinary tract infection. 4. Alzheimer's dementia. 5. History of congestive heart failure. 7. History of multiple sclerosis. PLAN: The patient will be continued on morphine drip at 5 mg an hour which will be titrated up for comfort care. I will also add atropine drops for secretions and DuoNeb for chest congestion. Will add IV Ativan for anxiety and Tylenol for fever. The patient remains terminally ill. I met with th e patient's son and several of the family members and comfort care discussed with them. They are al so requesting to remove the nonrebreather mask, so will put the patient on oxygen via nasal cannula. Will also add scopolamine patch for secretions in addition to atropine drops. Will continue to fo llow her from a palliative care standpoint. The patient has been made NO CODE. Dictated By: RUBEN PATEL/WILL Conf#: [id number] DID#: [id number] CC: THEO ÁLVAREZ MD;*EndCC*
== END 2017-10-29 00:10 | disposition expired | DRG 871 ==
LOC: E/R 07:37 → TEL 10:57
PROVIDERS: ADMIT Internal Medicine; ATTEND Internal Medicine Pulmonary Disease
PROC: 5A09357 Assistance with Respiratory Ventilation, Less than 24 Consecutive Hours, Continuous Positive Airway Pressure (ICD-10-PCS; principal; 2017-10-27)
DX: A41.9 Sepsis, unspecified organism (principal); J18.9 Pneumonia, unspecified organism; J96.01 Acute respiratory failure with hypoxia; G93.40 Encephalopathy, unspecified; E87.0 Hyperosmolality and hypernatremia; N39.0 Urinary tract infection, site not specified; G20 Parkinson's disease; J44.9 Chronic obstructive pulmonary disease, unspecified; G35 Multiple sclerosis; F20.9 Schizophrenia, unspecified; F02.80 Dementia in other diseases classified elsewhere, unspecified severity, without behavioral disturbance, psychotic disturbance, mood disturbance, and anxiety; I12.9 Hypertensive chronic kidney disease with stage 1 through stage 4 chronic kidney disease, or unspecified chronic kidney disease; N18.9 Chronic kidney disease, unspecified
CPT/HCPCS: 36415; 36600; 70450; 71010; 80053; 81001; 82803; 83605; 84484; 85025; 85610; 85730; 87040; 87086; 93005; 94644; 94660; 96374; 96375; J0692; J2270; J2930; J3370; J3475; J7040